=== PATIENT | male | born 1945 | race African-American/Black ===

== ENCOUNTER 2016-11-03 13:46 | Inpatient (IN) | payer MEDICARE, MEDICAID ==
[~2016-11-03] VITALS: Ht 182.9 cm; Wt 63.1 kg
[~2016-11-03 13:46] MED LIST: ACET-2178 PO; CLON0.1T PO; FAMO40TA70 PO; HYDR-523 PO; LORA1TAB PO; MIRT15TA PO; MULT-1146 PO; ONDA4TAB5 PO; POTA10TA15 PO; RISP1 PO; RISP2 PO; TIOT18CA3 IH; ZOLP5TAB2 PO
[2016-11-03] MEDS ORDERED: LEVOFLOXACIN 750MG PREMIX 150 ML IV STA (14:08)
[2016-11-03] MEDS ORDERED: METHYLPREDNISOLONE SOD SUCC 125 MG/2 ML VIAL IV STA (14:08)
[2016-11-03] MEDS ORDERED: ALBUTEROL (0.083%) 2.5MG/3ML NEB HHN STA ×2 (14:08→17:56)
[2016-11-03] MEDS ORDERED: IPRATROPIUM BROMIDE (0.02%) 0.5MG/2.5ML NEB HHN STA (14:08)
[2016-11-03 15:29] LABS: CHLORIDE 99 mEq/L (98-107)
[2016-11-03 15:33] LABS: D-DIMER 0.85 mg/L FEU (<0.50); PROTHROMBIN TIME 10.4 sec (9.4-11.6)
[2016-11-03 15:36] LABS: CARBON DIOXIDE 28 mEq/L (21-32)
[2016-11-03 15:41] LABS: TROPONIN I 0.18 ng/mL (0.00-0.04)
[2016-11-03 15:42] LABS: BASOPHILS % 0.2 % (0.0-2.0); EOSINOPHILS % 0.1 % (0.0-5.0); HEMATOCRIT. 42.6 % (42.0-52.0); HEMOGLOBIN. 13.7 g/dL (14.0-18.0); LYMPHOCYTES % 11.9 % (20.0-50.0); MEAN CORPUSCULAR HEMOGLOBIN 26.7 pg (28.0-32.0); MEAN CORPUSCULAR VOLUME 83.1 fL (80.0-94.0); MEAN PLATELET VOLUME 7.8 fl (7.4-10.4); MONOCYTES % 10.9 % (2.0-8.0); NEUTROPHILS % 76.9 % (40.0-76.0); PLATELET 267 x1000/uL (130-400); RED BLOOD CELL COUNT 5.13 mill/uL (4.7-6.1); RED CELL DISTRIBUTION WIDTH 15.5 % (11.6-14.6)
[2016-11-03] MEDS ORDERED: ASPIRIN 325MG TABLET PO ONE (16:45)
[2016-11-03 17:28] LABS: BG BASE EXCESS 1.2 mmol/L (-2.0-2.0); BG CARBOXYHEMOGLOBIN 2.9 % (0.5-1.5); BG DEOXYHEMOGLOBIN 11.8 % (0.0-5.0); BG FRACTION INSPIRED OXYGEN 28; BG HCO3 ACT 32.2 mmol/L (22.0-26.0); BG METHEMOGLOBIN 0.3 % (0.0-1.5); BG OXYGEN SATURATION 87.8 % (92.0-98.5); BG PCO2 86.5 mmHg (35.0-45.0); BG PH 7.189 (7.350-7.450); BG PO2 61.2 mmHg (75.0-100.0); BG SAMPLE SITE RIGHT RADIAL; BG TOTAL HEMOGLOBIN 14.4 g/dL (12.0-18.0); BG VENT MODE NASAL CANNULA
[2016-11-03 22:25] VITALS: BP 140/99
[2016-11-03 23:00] VITALS: BP_SYST 1; BP_SYST 140; BP_DIAS 99
[2016-11-03] MEDS ORDERED: MORPHINE SULFATE 2 MG/ML CPJ (NOT FOR IM USE) IV PRN (23:15)
[2016-11-03] MEDS ORDERED: IPRATROPIUM/ALBUTEROL 0.5-3(2.5)MG/3ML NEB INH PRN (23:15)
[2016-11-03] MEDS ORDERED: DOCUSATE SODIUM 100MG CAPSULE PO PRN (23:15)
[2016-11-03] MEDS ORDERED: MAGNESIUM/ALUMINUM HYDROXIDE/SIMETHICONE 30ML UDC PO PRN (23:15)
[2016-11-03] MEDS ORDERED: GUAIFENESIN 200MG/10ML SUGAR FREE UDC PO PRN (23:15)
[2016-11-03] MEDS ORDERED: DIPHENHYDRAMINE 50MG/ML VIAL IV PRN (23:15)
[2016-11-03] MEDS ORDERED: HYDROCODONE/ACETAMINOPHEN 5/325MG TABLET PO PRN (23:15)
[2016-11-03] MEDS ORDERED: CLONIDINE 0.1MG TABLET PO PRN (23:15)
[2016-11-03] MEDS ORDERED: ONDANSETRON HCL 4MG/2ML VIAL IV PRN (23:15)
[2016-11-04] VITALS (13 sets, daily range): BP systolic 97–132; BP diastolic 53–82
[2016-11-04] MEDS: METHYLPREDNISOLONE SOD SUCC 125 MG/2 ML VIAL IV SCH ×5 (01:03→23:53)
[2016-11-04 07:16] LABS: CARBON DIOXIDE 31 mEq/L (21-32); CHLORIDE 98 mEq/L (98-107)
[2016-11-04 07:51] LABS: HEMATOCRIT. 42.1 % (42.0-52.0); HEMOGLOBIN. 13.3 g/dL (14.0-18.0); MEAN CORPUSCULAR HEMOGLOBIN 26.6 pg (28.0-32.0); MEAN CORPUSCULAR VOLUME 84.2 fL (80.0-94.0); PLATELET 243 x1000/uL (130-400); RED CELL DISTRIBUTION WIDTH 15.6 % (11.6-14.6)
[2016-11-04] MEDS: ASPIRIN 81MG EC TABLET PO SCH (08:42)
[2016-11-04] MEDS: ENOXAPARIN 40MG/0.4ML SYR SUBCUT SCH (08:43)
[2016-11-04] MEDS: AMLODIPINE 10MG TABLET PO SCH (08:43)
[2016-11-04 09:02] LABS: BG BASE EXCESS 3.1 mmol/L (-2.0-2.0); BG CARBOXYHEMOGLOBIN 1.4 % (0.5-1.5); BG HCO3 ACT 33.7 mmol/L (22.0-26.0); BG METHEMOGLOBIN 0.4 % (0.0-1.5); BG OXYGEN SATURATION 95.9 % (92.0-98.5); BG OXYHEMOGLOBIN 94.2 % (94.0-97.0); BG PCO2 83.8 mmHg (35.0-45.0); BG PH 7.222 (7.350-7.450); BG PO2 87.5 mmHg (75.0-100.0); BG SAMPLE SITE RIGHT BRACHIAL; BG TOTAL HEMOGLOBIN 14.1 g/dL (12.0-18.0); BG VENT MODE NASAL CANNULA
[2016-11-04] MEDS: IPRATROPIUM/ALBUTEROL 0.5-3(2.5)MG/3ML NEB INH SCH ×2 (09:05→13:56)
[2016-11-04] MEDS ORDERED: SODIUM CHLORIDE 0.9% 10ML VIAL ONE (14:41)
[2016-11-04] MEDS ORDERED: IOHEXOL-350 100 ML BOTTLE ONE (14:41)
[2016-11-04] MEDS ORDERED: LEVOFLOXACIN 500MG PREMIX 100 ML IV SCH (15:00)
[2016-11-04 19:47] LABS: PLATELET ESTIMATE NORMAL
[2016-11-05] VITALS (12 sets, daily range): BP systolic 89–147; BP diastolic 45–78
[2016-11-05] MEDS: IPRATROPIUM/ALBUTEROL 0.5-3(2.5)MG/3ML NEB INH SCH ×3 (01:58→14:02)
[2016-11-05] MEDS: METHYLPREDNISOLONE SOD SUCC 125 MG/2 ML VIAL IV SCH ×3 (04:47→17:59)
[2016-11-05] MEDS: AMLODIPINE 10MG TABLET PO SCH (09:00)
[2016-11-05] MEDS: ASPIRIN 81MG EC TABLET PO SCH (10:28)
[2016-11-05] MEDS: ENOXAPARIN 40MG/0.4ML SYR SUBCUT SCH (10:29)
[2016-11-05 12:05] LABS: BG CARBOXYHEMOGLOBIN 0.6 % (0.5-1.5); BG DEOXYHEMOGLOBIN 3.7 % (0.0-5.0); BG FRACTION INSPIRED OXYGEN 28; BG HCO3 ACT 40.6 mmol/L (22.0-26.0); BG METHEMOGLOBIN 0.5 % (0.0-1.5); BG OXYGEN SATURATION 96.3 % (92.0-98.5); BG OXYHEMOGLOBIN 95.2 % (94.0-97.0); BG PCO2 80.7 mmHg (35.0-45.0); BG PO2 88.2 mmHg (75.0-100.0); BG SAMPLE SITE RIGHT BRACHIAL; BG TOTAL HEMOGLOBIN 13.7 g/dL (12.0-18.0); BG VENT MODE NASAL CANNULA
[2016-11-05 15:05] LABS: HEMOGLOBIN. 12.5 g/dL (14.0-18.0); MEAN CORPUSCULAR HEMOGLOBIN 26.7 pg (28.0-32.0); MEAN CORPUSCULAR VOLUME 83.1 fL (80.0-94.0); MEAN PLATELET VOLUME 7.8 fl (7.4-10.4); PLATELET 248 x1000/uL (130-400); RED BLOOD CELL COUNT 4.69 mill/uL (4.7-6.1); RED CELL DISTRIBUTION WIDTH 15.4 % (11.6-14.6)
[2016-11-05 15:13] LABS: CARBON DIOXIDE 35 mEq/L (21-32); CHLORIDE 95 mEq/L (98-107)
[2016-11-05] MEDS ORDERED: MORPHINE SULFATE 4 MG/ML CPJ (NOT FOR IM USE) IV PRN (15:15)
[2016-11-05] MEDS ORDERED: LEVOFLOXACIN 500MG PREMIX 100 ML IV SCH (17:00)
[2016-11-05 20:40] LABS: PLATELET ESTIMATE NORMAL
[2016-11-06] VITALS (10 sets, daily range): BP systolic 94–130; BP diastolic 47–72
[2016-11-06] MEDS: METHYLPREDNISOLONE SOD SUCC 125 MG/2 ML VIAL IV SCH ×3 (00:04→11:09)
[2016-11-06] MEDS: IPRATROPIUM/ALBUTEROL 0.5-3(2.5)MG/3ML NEB INH SCH (03:31)
[2016-11-06] MEDS: IPRATROPIUM/ALBUTEROL 0.5-3(2.5)MG/3ML NEB HHN SCH ×2 (08:45→12:12)
[2016-11-06] MEDS: ASPIRIN 81MG EC TABLET PO SCH (09:45)
[2016-11-06] MEDS: AMLODIPINE 10MG TABLET PO SCH (09:45)
[2016-11-06] MEDS: ENOXAPARIN 40MG/0.4ML SYR SUBCUT SCH (09:45)
[2016-11-06 12:44] LABS: BG BASE EXCESS 13.5 mmol/L (-2.0-2.0); BG CARBOXYHEMOGLOBIN 0.9 % (0.5-1.5); BG DEOXYHEMOGLOBIN 2.4 % (0.0-5.0); BG FRACTION INSPIRED OXYGEN 28; BG HCO3 ACT 42.9 mmol/L (22.0-26.0); BG METHEMOGLOBIN 0.2 % (0.0-1.5); BG OXYGEN SATURATION 97.6 % (92.0-98.5); BG OXYHEMOGLOBIN 96.5 % (94.0-97.0); BG PCO2 79.7 mmHg (35.0-45.0); BG PH 7.349 (7.350-7.450); BG PO2 100.4 mmHg (75.0-100.0); BG SAMPLE SITE RIGHT RADIAL; BG TOTAL HEMOGLOBIN 13.8 g/dL (12.0-18.0); BG VENT MODE NASAL CANNULA
== END 2016-11-06 18:00 | DRG 189 ==
LOC: ER 14:32 → 5EST 17:36 → EDBEDREQ 17:38 → EDBEDREQSVC 17:38 → ENRESERV 20:17 → SUPCPDRO 23:03
PROVIDERS: ADMIT Hospitalist; ATTEND Hospitalist
DX: J96.02 Acute respiratory failure with hypercapnia (principal); E87.5 Hyperkalemia; J44.1 Chronic obstructive pulmonary disease with (acute) exacerbation; G40.909 Epilepsy, unspecified, not intractable, without status epilepticus; J96.01 Acute respiratory failure with hypoxia; F20.9 Schizophrenia, unspecified; F17.210 Nicotine dependence, cigarettes, uncomplicated; I10 Essential (primary) hypertension; R07.89 Other chest pain; K80.20 Calculus of gallbladder without cholecystitis without obstruction; Z79.899 Other long term (current) drug therapy
CPT/HCPCS: 36415; 36600; 70450; 71010; 71275; 80048; 80053; 82375; 82805; 83605; 83880; 84443; 84484; 85025; 85379; 85610; 87040; 93005; 93970; 94640; 96365; 96376; 99291; A4216; J1650; J1956; J2930; J7050; J7611; J7620; Q9967